=== PATIENT | female | born 1960 | race Caucasian/White ===

== ENCOUNTER → 2018-05-24 | Outpatient (CLI) | payer OTHER ==
--- NOTE | 2018-05-24 16:31 | PCVCIMAG ---
EXAM: NONINVASIVE ARTERIAL EXAMINATION OF BOTH LOWER EXTREMITIES INCLUDING PRE AND POST EXERCISE PRESSURE MEASUREMENTS AND DOPPLER WAVEFORMS INDICATION: Peripheral Arterial Disease. Leg pain. FINDINGS: Right Brachial: Not obtained. Right Dorsalis Pedis: 106 mm Hg. Right Posterior Tibial: 114 mm Hg. Right VICTORIA = 1.14. Left Brachial: 100 mm Hg. Left Dorsalis Pedis: 112 mm Hg. Left Posterior Tibial: 119 mm Hg. Left VICTORIA = 1.19. Post Exercise: Left Brachial 102 mm Hg. Right Posterior Tibial: 107 mm Hg. Left Posterior Tibial: 110 mm Hg. Right VICTORIA = 1.05. Left VICTORIA = 1.08. IMPRESSION: No resting ischemia in the right lower extremity. No exercise induced ischemia in the right lower extremity. No resting ischemia in the left lower extremity. No exercise induced ischemia in the left lower extremity. LOC:[id number]
--- NOTE | 2018-05-24 16:32 | PCVCIMAG ---
EXAM: LEFT LOWER EXTREMITY ARTERIAL DUPLEX INDICATION: Peripheral Arterial Disease. Leg pain. FINDINGS: Left Leg: Satisfactory arterial waveforms throughout the common/profunda/superficial femoral, popliteal, anterior tibial, peroneal, and posterior tibial arteries. No flow limiting stenosis seen. IMPRESSION: No flow limiting stenosis in the left lower extremity. LOC:[id number]
--- NOTE | 2018-05-24 16:35 | PCVCIMAG ---
EXAM: VENOUS DUPLEX LEFT ILIOFEMORAL VEIN. INDICATION: Leg pain and swelling. FINDINGS: Left leg: The visualized portions of the inferior vena cava are patent. The left common and external iliac veins appear patent. The left common femoral vein is patent. IMPRESSION: No left iliac vein or left common femoral vein thrombus, extrinsic compression, or significant stenosis seen. Presumably previous left iliac vein stent maintaining adequate patency. LOC:[id number] [id number]
== END | disposition home or self-care (01) ==
LOC: PCVCIMAG 16:30
PROVIDERS: ATTEND Thoracic Surgery (Cardiothoracic Vascular Surgery)
DX: I73.9 Peripheral vascular disease, unspecified (principal)
CPT/HCPCS: 93923; 93926; 93976; 93924